=== PATIENT | female | born 1940 | race Caucasian/White ===

== ENCOUNTER 2023-01-03 10:01 | Outpatient (CLI) | payer MEDICARE | END 2023-01-03 10:02 | disposition critical access hospital (66) | LOC: EMS 10:01 | DX: R42 Dizziness and giddiness (principal); R11.0 Nausea | CPT/HCPCS: A0425; A0427 ==

== ENCOUNTER 2023-01-03 10:29 | Emergency (ER) | payer MEDICARE, OTHER ==
[2023-01-03] MEDS ORDERED: SODIUM CHLORIDE 0.9% 1,000 ML IV STA (11:16)
[2023-01-03] MEDS ORDERED: ONDANSETRON 4 MG/2 ML VIAL IVP STA (11:16)
[2023-01-03 11:30] LABS: BASOPHILS % (AUTO) 0.7 %; EOSINOPHILS # (AUTO) 0.2 10^3/uL (0.0-0.7); EOSINOPHILS % (AUTO) 2.6 %; HCT - HEMATOCRIT 39.8 % (37.0-47.0); LYMPHOCYTES # (AUTO) 0.7 10^3/uL (1.5-3.5); LYMPHOCYTES % (AUTO) 11.4 %; MEAN CORPUSCULAR HGB CONC 32.7 g/dL (32.0-36.0); MEAN CORPUSCULAR VOLUME 91.9 fL (81.0-99.0); MEAN PLATELET VOLUME 9.1 fL (7.9-10.8); MONOCYTES # (AUTO) 0.3 10^3/uL (0.0-1.0); MONOCYTES % (AUTO) 5.5 %; NEUTROPHILS # (AUTO) 4.6 10^3/uL (1.5-6.6); NEUTROPHILS % (AUTO) 79.5 %; PLT - PLATELET COUNT 162 10^3/uL (130-450); RED BLOOD COUNT 4.33 10^6/uL (4.20-5.40); RED CELL DISTRIBUTION WIDTH 12.7 % (12.0-15.0); WHITE BLOOD COUNT 5.8 x10^3/uL (4.8-10.8)
[2023-01-03 11:44] LABS: ALBUMIN 3.8 g/dL (3.2-5.5); ALBUMIN/GLOBULIN RATIO 1.7 (1.0-2.2); BILIRUBIN,TOTAL 0.5 mg/dL (0.2-1.0); CALCIUM 8.6 mg/dL (8.5-10.3); CREATININE 0.9 mg/dL (0.4-1.0); TOTAL PROTEIN 6.1 g/dL (6.7-8.2)
[2023-01-03] MEDS ORDERED: MECLIZINE 12.5 MG TABLET PO STA (12:33)
--- NOTE | 2023-01-03 13:24 | CT Report ---
PROCEDURE: HEAD WO INDICATIONS: vertigo TECHNIQUE: Noncontrast 4.5 mm thick angled axial sections acquired from the foramen magnum to the vertex. For r adiation dose reduction, the following was used: automated exposure control, adjustment of mA and/or kV according to patient size. COMPARISON: None. FINDINGS: Image quality: Excellent. CSF spaces: Basal cisterns are patent. No extra-axial fluid collections. Ventricles are normal in size and shape. Brain: No midline shift. No intracranial masses or hemorrhage. Hughes-white matter interface is norm al. Skull and face: Calvarium and visualized facial bones are intact, without suspicious lesions. Sinuses: Moderate bilateral ethmoid sinus mucosal thickening. Visualized sinuses and mastoids are ot herwise clear. IMPRESSION: No acute intracranial abnormality. Sinus disease. Reviewed by: Dimitri Parada MD on 01/03/2023 12:23 PM [facility] Approved by: Dimitri Parada MD on 01/03/2023 12:23 PM [facility] Station ID: [id number]
--- NOTE | 2023-01-03 14:01 | ED Physician Documentation ---
History of Present Illness - Stated complaint Stated Complaint: NAUSEA/DIZZY - Chief complaint Chief Complaint: Neuro - History obtained from History obtained from: Patient, Family, EMS - Additonal information Additional information: The patient is brought to the emergency department by EMS and with her significant other for chief complaint of nausea and dizziness. The nausea started this morning and the dizziness, which the patient relates as a sense of being "off balance" started last night. Patient states she woke up this morning to go the bathroom and when she got up she suddenly felt as though everything was moving. She ended up becoming very nauseated and vomiting. She denies any tinnitus. No recent head injury. She does not have a history of vertigo previously. The patient was feeling fine earlier yesterday. She has had a little diarrhea today. 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 No other complaints at this time. The patient specifically denies any focal deficits. She does not feel the sense of vertigo while just lying still in bed. She still little nauseated. PD PAST MEDICAL HISTORY - Present Medications Home Medications: Ambulatory Orders Medication Instructions Recorded Confirmed Meclizine [Antivert] 25 mg PO Q6H PRN #20 tablet 01/03/23 Ondansetron Odt [Zofran] 4 mg TL Q6H PRN #10 tablet 01/03/23 - Allergies Allergies/Adverse Reactions: Allergies Allergy/AdvReac Type Severity Reaction Status Date / Time hydrocodone Allergy Emesis Verified 01/03/23 10:34 PD ED PE NORMAL - Vitals Vital signs reviewed: Yes - General General: Alert and oriented X 3, No acute distress, Well developed/nourished - HEENT HEENT: Atraumatic, PERRL, EOMI, Moist mucous membranes - Neck Neck: Supple, no meningeal sign - Cardiac Cardiac: RRR, No murmur - Respiratory Respiratory: No respiratory distress, Clear bilaterally - Abdomen Abdomen: Soft, Non tender, Non distended - Derm Derm: Normal color, Warm and dry, No rash - Extremities Extremities: No deformity, No edema - Neuro Neuro: Alert and oriented X 3, 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 No truncal instability, however. No ataxia.) - Psych Psych: Normal mood, Normal affect Results - Vitals Vitals: Vital Signs - 24 hr 01/03/23 12:39 Heart Rate 58 L Respiratory 14 Rate Blood Pressure 122/74 O2 Saturation 99 Oxygen O2 Source Room air - Labs Labs: Laboratory Tests 01/03/23 01/03/23 11:26 11:26 WBC 5.8 RBC 4.33 Hgb 13.0 Hct 39.8 MCV 91.9 MCH 30.0 MCHC 32.7 RDW 12.7 Plt Count 162 MPV 9.1 Neut # (Auto) 4.6 Lymph # (Auto) 0.7 L Love # (Auto) 0.3 Eos # (Auto) 0.2 Baso # (Auto) 0.0 Absolute Nucleated RBC 0.00 Nucleated RBC % 0.0 Sodium 143 Potassium 4.0 Chloride 103 Carbon Dioxide 26 Anion Gap 14.0 H BUN 17 Creatinine 0.9 Estimated GFR (MDRD) 60 L Glucose 102 H Calcium 8.6 Total Bilirubin 0.5 AST 24 ALT 17 Alkaline Phosphatase 58 Total Protein 6.1 L Albumin 3.8 Globulin 2.3 Albumin/Globulin Ratio 1.7 Lipase 45 - Rads (name of study) Head CT Relevant Findings:: Final report received, See rad report (No acute findings) PD Medical Decision Making - ED course Complexity details: reviewed results, re-evaluated patient, considered differential, d/w patient, d/w family ED course: The patient was treated with IV fluids, Zofran, and meclizine, and worked up with labs including ER abdominal panel and CBC, which were ordered and reviewed by me and found to be unremarkable. Her head CT did not show any acute findings. The patient seem to have very much a positional vertigo and I suspected that this was a benign etiology. After treatment with IV fluids and meclizine, the patient was able to get up and walk to the bathroom twice with nursing staff with minimal assistance. I felt she was stable for discharge home. She did not have any focal deficits and did not have ataxia to raise concern for a cerebellar CVA. We have discussed home management of the symptoms, as well as the usual indications for return. Departure - Departure Disposition: 01 Home, Self Care Clinical Impression: Gastroenteritis Benign positional vertigo Qualifiers: Laterality: unspecified laterality Qualified Code(s): H81.10 - Benign paroxysmal vertigo, unspecified ear Condition: Stable Instructions: ED BPV Vertigo Prescriptions: Meclizine [Antivert] 25 mg PO Q6H PRN #20 tablet PRN Reason: Vertigo Ondansetron Odt [Zofran] 4 mg TL Q6H PRN #10 tablet PRN Reason: Nausea / Vomiting Comments: Your labs and head CT look good. You have been treated with IV fluids, nausea medicine, and medicine for your vertigo. You most likely have the viral stomach flu that is going around, but you also have some benign positional vertigo. This is a vertigo that comes from your inner ear and is not associated with more serious brain pathology. Please be sure you drink plenty of fluids. Your prescription for nausea and dizziness medicine has been electronically transmitted to the [facility] in [place] near [facility]. Please follow-up with your doctor at home, as needed.
[2023-01-03 14:13] VITALS: BP 106/70
== END 2023-01-03 14:31 | disposition home or self-care (01) ==
LOC: ED 10:29
DX: K52.9 Noninfective gastroenteritis and colitis, unspecified (principal); H81.10 Benign paroxysmal vertigo, unspecified ear
CPT/HCPCS: 36415; 70450; 80053; 83690; 85025; 96374; 99284; A9270